=== PATIENT | female | born 1990 | race Caucasian/White ===

== ENCOUNTER 2020-01-30 22:28 | Emergency (ER) | payer MEDICAID ==
[2020-01-30 22:31] VITALS: BP 136/81; PULSE 94; RESP 20; TEMP 98.3
[2020-01-30] MEDS ORDERED: IBUPROFEN 600 MG TAB PO STA (22:36)
[2020-01-30] MEDS ORDERED: TOBRAMYCIN 0.3% OPHTH OINT 3.5 GM TUBE RIGHT EYE STA (22:36)
[2020-01-30] MEDS ORDERED: PROPARACAINE 0.5% OPHTH DROPS 15 ML BTL RIGHT EYE STA (22:36)
[2020-01-30] MEDS ORDERED: FLUORESCEIN STRIPS 1 MG STRIP RIGHT EYE ONE (22:36)
--- NOTE | 2020-01-30 23:00 | ED ---
General Adult HPI - General Chief complaint: Eye Problems Stated complaint: Eye Problems Time Seen by Provider: 01/30/20 22:33 Source: patient Mode of arrival: ambulatory Limitations: no limitations - History of Present Illness Initial comments: 29-year-old female patient presents to the emergency department today for evaluation of foreign body to the right eye. Patient states that just prior to arrival she was cutting some wood when a piece flew into her eye. States that it has been irritated. She is able to keep her eye open. She denies any niels rred or double vision. States she did try to flush out was unsuccessful so she came in to get it removed. States her tetanus vaccine is up-to-date in the last year. Denies any drainage from the eye. Denies any headache. Denies any other injuries. - Related Data Allergies Allergy/AdvReac Type Severity Reaction Status Date / Time No Known Allergies Allergy Verified 01/30/20 22:31 Review of Systems ROS Statement: Those systems with pertinent positive or pertinent negative responses have been documented in the HPI. ROS Other: All systems not noted in ROS Statement are negative. Past Medical History Past Medical History: No Reported History History of Any Multi-Drug Resistant Organisms: None Reported Past Surgical History: Section Past Psychological History: No Psychological Hx Reported Smoking Status: Never smoker Past Alcohol Use History: None Reported Past Drug Use History: None Reported General Exam Limitations: no limitations General appearance: alert, in no apparent distress, other (This is a well- developed, well-nourished adult female patient in no acute distress. Vital signs upon presentation are temperature 98.3F, pulse 94, respirations 20, blood pressure 136/81, pulse ox 99% on room air.) Eye exam: Present: PERRL, EOMI, other (There is foreign body noted to the right eye at 3:00 over the iris. Fluorescein stain with Wood's lamp examination was performed and shows no evidence for additional corneal injury, negative Luz sign.). Absent: scleral icterus, conjunctival injection, periorbital swelling Respiratory exam: Present: normal lung sounds bilaterally. Absent: respiratory distress, wheezes, rales, rhonchi, stridor Cardiovascular Exam: Present: regular rate, normal rhythm, normal heart sounds. Absent: systolic murmur, diastolic murmur, rubs, gallop, clicks Neurological exam: Present: alert, oriented X3, CN II-XII intact Psychiatric exam: Present: normal affect, normal mood Skin exam: Present: warm, dry, intact, normal color. Absent: rash Course Vital Signs 01/30/20 22:30 Temperature 98.3 F Pulse Rate 94 Respiratory 20 Rate Blood Pressure 136/81 O2 Sat by Pulse 99 Oximetry Procedures - Forgein Body Removal Eye Site: Right Location in eye(s): 3:00 over the iris Anesthetic Used: Proparacaine Eye Exam Technique: Bianchi Lamp, Fluorescein Foreign Body Suspected: Wood Forgein Body Removal Technique: [place]brush Remaining Debris: No Patient Tolerated: no complications Medical Decision Making - Medical Decision Making 29-year-old female patient presents to the emergency department today for evaluation of foreign body to the right eye. Physical examination did reveal foreign body at 3:00 over the iris. Fluorescein stain with Wood's lamp examination was performed and showed no additional corneal injury, negative Luz sign. Eye was anesthetized using proparacaine and the foreign body was removed using the [place] brush. The patient tolerated this well. She'll be started on tobramycin ointment for prevention of infection. She'll be discharge instructions to follow-up with ophthalmology if her symptoms aren't improved over the next 24 hours. She is instructed to follow-up with the primary care physician for recheck in 1-2 days. Return parameters discussed in detail. She verbalizes understanding and agrees with this plan. Disposition Clinical Impression: Foreign body of right eye Disposition: HOME SELF-CARE Condition: Good Instructions (If sedation given, give patient instructions): Eye Foreign Body (ED) Additional Instructions: Use ointment to right eye four times a day while awake. Take ibuprofen for discomfort. Follow up with pulp grinder if you're symptoms aren't improved over the next 24 hours. Follow-up through primary care physician for recheck in 1-2 days. Return to the emergency department immediately for any new, worsening, or concerning symptoms. Is patient prescribed a controlled substance at d/c from ED?: No Referrals: Aida Juárez DO [Primary Care Provider] - 1-2 days Robert Lemus MD [STAFF PHYSICIAN] - 1-2 days Time of Disposition: 23:00
== END 2020-01-30 23:13 | disposition home or self-care (01) ==
LOC: EC 22:28
DX: T15.91XA Foreign body on external eye, part unspecified, right eye, initial encounter (principal)
CPT/HCPCS: 65205; 99283

== ENCOUNTER → 2021-06-11 | Outpatient (CLI) | payer MEDICAID | END | disposition home or self-care (01) | LOC: LABWHC1 06:43 | PROVIDERS: ATTEND Emergency Medicine | DX: U07.1 COVID-19 (principal) | CPT/HCPCS: 87635 ==